=== PATIENT | female | born 2000 | race Caucasian/White ===

== ENCOUNTER 2023-06-06 09:00 | Outpatient (RCR) | payer OTHER, SELFPAY | END 2023-09-23 07:24 | disposition home or self-care (01) | LOC: HO.PTWFD 09:00 | PROVIDERS: PCP Family Medicine; Visit Provider Nurse Practitioner Family | DX: M25.512 Pain in left shoulder (principal) | CPT/HCPCS: 97012; 97110; 97161; 97535 ==